=== PATIENT | male | born 1945 | race Caucasian/White ===

== ENCOUNTER 2021-08-03 10:57 | Emergency (ER) | payer MEDICARE ==
[2021-08-03 13:22] LABS: HEMOGLOBIN 12.8 gm/dl (14.0-17.5); RED BLOOD COUNT 4.21 M/UL (4.20-5.50); WHITE BLOOD COUNT 7.2 K/UL (4.5-11.0)
[2021-08-03 13:46] LABS: BUN/CREATININE RATIO 18 (0-10)
[2021-08-03] MEDS ORDERED: ATIVAN1 MG PO (14:24)
== END 2021-08-03 14:45 | disposition home or self-care (01) ==
LOC: ER1 10:57
PROVIDERS: Family Medicine
DX: F10.139 Alcohol abuse with withdrawal, unspecified (principal); F41.9 Anxiety disorder, unspecified
CPT/HCPCS: 80053; 83735; 85025; 96374; 99283; J3411; J3475; J7030